=== PATIENT | male | born 1955 | race Caucasian/White ===

== ENCOUNTER → 2022-10-29 | Outpatient (CLI) | payer MEDICARE | END | disposition home or self-care (01) | LOC: LAB SHORT 10:03 → PLD 10:03 | DX: L57.0 Actinic keratosis (principal); L28.0 Lichen simplex chronicus | CPT/HCPCS: 88305 ==

== ENCOUNTER 2022-12-21 08:23 | Day surgery (SDC) | payer MEDICARE ==
[~2022-12-21] VITALS: Ht 172.7 cm; Wt 101.7 kg
[~2022-12-21 08:23] MED LIST: ACET500 PO; FOLI1 PO; KRILL OIL500 MG PO; LISI20 PO; METO25 PO; MULVITA PO; NEURIVA PO; OSTEO BIFLEX PO; PANT40 PO; POTASSIUM PO; PROSTATE PLUS PO; PSYLLIUM FIBER0.4 GM PO; Saw Palmetto160 MG PO; TIZANIDINE HCL2 MG PO; VITAMIN D310 MC4 PO; ZOCOR20 MG PO; [UNRECOGNIZED DRUG - OTHER] PO
--- NOTE | 2022-12-21 09:53 | NUR ---
History, Chart, Medications and Allergies reviewed before start of procedure. Lungs clear T/O to Auscultation. Patient confirms NPO status and agrees with scheduled surgery. Pre-Op teaching done. Pt verbalizes understanding. Patient reports completing Chlorhexadine shower X2 prior to admission to hospital.
--- NOTE | 2022-12-21 17:23 | NUR ---
SHIFT SUMMARY PT A&OX4, VSS/RA, PAULINE PO REG DIET, VOIDING, AMB SBA FWW & GB, PAIN MANAGED PER EMAR. S/P L TKA, AQUACEL CDI, PT ED'D. WILL REPORT TO ONCOMING NOC RN.
[2022-12-22 06:01] LABS: BASOPHILS ABSOLUTE AUTO 0.01 K/mm3 (0.00-0.23); BASOPHILS PERCENT AUTO 0 % (0-2); EOSINOPHILS ABSOLUTE AUTO 0.03 K/mm3 (0.00-0.68); EOSINOPHILS PERCENT AUTO 0 % (0-6); Hematocrit 36.3 % (37.0-53.0); Hemoglobin 11.8 g/dL (13.5-17.5); IMMATURE GRAN ABSOLUTE AUTO 0.03 K/mm3 (0.00-0.10); IMMATURE GRAN PERCENT AUTO 0 % (0-1); LYMPHOCYTES ABSOLUTE AUTO 0.96 K/mm3 (0.84-5.20); LYMPHOCYTES PERCENT AUTO 13 % (21-46); MONOCYTES ABSOLUTE AUTO 0.75 K/mm3 (0.16-1.47); MONOCYTES PERCENT AUTO 10 % (4-13); Mean Corpuscular HGB 30.3 pg (26.0-34.0); Mean Corpuscular HGB Conc 32.5 g/dL (31.5-36.5); Mean Corpuscular Volume 93 fL (80-100); NEUTROPHILS PERCENT AUTO 76 % (41-73); Platelet Count 153 K/mm3 (150-400); RDW Coefficient Variation 12.5 % (11.7-14.2); RDW Standard Deviation 42.3 fL (35.1-46.3); White Blood Cell Count 7.48 K/mm3 (4.00-11.30)
[2022-12-22 06:27] LABS: Bun/Creatinine Ratio 22.8 (12.0-20.0); Calcium, Blood 8.6 mg/dL (8.5-10.1); Creatinine, Blood 0.97 mg/dL (0.60-1.20); Magnesium, Blood 2.2 mg/dL (1.6-2.4); Potassium, Blood 4.2 mmol/L (3.5-5.5)
--- NOTE | 2022-12-22 07:23 | NUR ---
SHIFT SUMMARY POD1 L TKA WITH DR. BUI WITH AQUACEL DRESSING, REMAINED CDI. PT REPORTS MINIMAL PAIN T/O SHIFT. PAIN MANAGED WITH EUSEBIO, TYLENOL AND TORADOL. PT ALSO HAS POLAR PACK, DEREJE HOSE AND SCD IN PLACED. TOLERATING PO INTAKE. DENIES N/V. VSS. DENIES CP AND SOB. PT ALSO DENIES DIZZINESS. AMBULATES IN THE HALLWAY LAST NIGHT. UP TO THE BATHROOM OVERNIGHT. 1PA WITH FWW AND GB. AOX4. CALL LIGHT WITHIN REACH. REPORT GIVEN TO NESSA PAZ.
[2022-12-22] MEDS ORDERED: ASPI81CH PO (10:21)
[2022-12-22] MEDS ORDERED: OXYC5 PO (10:21)
--- NOTE | 2022-12-22 12:20 | NUR ---
DISCHARGE PT PROVIDED WITH WRITTEN AND VERBAL DISCHARGE INSTRUCTIONS; HE AND HIS SPOUSE REPORTED UNDERSTANDING. PT PROVIDED WITH CLEAN DRESSINGS. PT CLEARED THERAPY, PAIN MANAGED, PT TOLERATING PO, AND PAIN MANAGED PRIOR TO DISCHARGE. VSS PRIOR TO DISCHARGE. PT ASSISTED OUT IN W/C BY CARLIE GANDARA.
== END 2022-12-22 12:15 | disposition home or self-care (01) ==
LOC: ORSCMMR 08:23 → ORD 10:30 → SURS 12:36 → ORSCMMR 12-22 12:15
PROVIDERS: Orthopaedic Surgery
PROC: 8E0Y0CZ Robotic Assisted Procedure of Lower Extremity, Open Approach (ICD-10-PCS; principal; 2022-12-21 10:30)
PROC: 0SRD0JA Replacement of Left Knee Joint with Synthetic Substitute, Uncemented, Open Approach (ICD-10-PCS; principal; 2022-12-21 10:30)
DX: M17.12 Unilateral primary osteoarthritis, left knee (principal); I10 Essential (primary) hypertension; E66.9 Obesity, unspecified; Z68.34 Body mass index [BMI] 34.0-34.9, adult; Z79.899 Other long term (current) drug therapy
CPT/HCPCS: 27447; 0055T; S2900; 36415; 73560-LT; 80048; 83735; 85025; 97110; 97116; 97162; A9270; C1776; J0171; J0690; J0735; J1100; J1885; J2250; J2370; J2405; J2704; J2795; J3010; J7120

== ENCOUNTER 2025-07-04 11:57 | Day surgery (SDC) | payer MEDICARE ==
[~2025-07-04] VITALS: Ht 172.7 cm; Wt 85.9 kg
[~2025-07-04 11:57] MED LIST changes: +ASPI81CH PO; +OXYC5 PO; +Tranexamic Acid 100 ML IV ONE
[2025-07-04] MEDS ORDERED: ZEPBOUND2.5 MG/0.5 (12:21)
[2025-07-04] MEDS ORDERED: Ondansetron HCl 2 MG / ML 2ML Vial ONE (12:36)
[2025-07-04] MEDS ORDERED: Dexamethasone Sod Phos 10 MG/ML 1ML VIAL ONE (12:36)
[2025-07-04] MEDS ORDERED: EPINEPhrine HCl 1 MG / ML 30ML Vial ONE (12:55)
[2025-07-04] MEDS ORDERED: Lidocaine 1%-Epineph 1:200000 30 ML SDV ONE (12:55)
[2025-07-04] MEDS ORDERED: FentaNYL Citrate 50 MCG/ML 2 ML Injection ONE (13:11)
[2025-07-04] MEDS ORDERED: Sugammadex Sodium 200 MG/2ML SDV (100 MG/ML) ONE (14:33)
[2025-07-04 15:09] VITALS: BP 108/74
== END 2025-07-04 15:55 | disposition home or self-care (01) ==
LOC: ORSCSDS 11:57
PROVIDERS: Otolaryngology
PROC: 09SL0ZZ Reposition Nasal Turbinate, Open Approach (ICD-10-PCS; principal; 2025-07-04 13:15)
PROC: 09BM0ZZ Excision of Nasal Septum, Open Approach (ICD-10-PCS; principal; 2025-07-04 13:15)
DX: J34.3 Hypertrophy of nasal turbinates (principal); J34.2 Deviated nasal septum; I10 Essential (primary) hypertension; E78.5 Hyperlipidemia, unspecified; K21.9 Gastro-esophageal reflux disease without esophagitis; Z79.899 Other long term (current) drug therapy
CPT/HCPCS: J0165; J1100; J2405; J2704; J3010; J7120

== ENCOUNTER 2025-08-16 13:17 | Day surgery (SDC) | payer MEDICARE ==
[~2025-08-16] VITALS: Ht 172.7 cm; Wt 80.6 kg
[~2025-08-16 13:17] MED LIST changes: +Balanced Salt Epinephrine Irrigation Solution 500 mL IR SCH; +Moxifloxacin HCL 0.5 MG/0.1 ML 0.4MLSYR RIGHTEYE SCH; +Ondansetron 4 MG SoluTab MM PRN; +PHENYLEPHRINE\\TROPICAMIDE\\TETRACAINE OPHTHALMIC DILATING SOLN RIGHTEYE PRN; +Povidone-Iodine 450 DROP/30 ML Solution ONE; +Povidone-Iodine 450 DROP/30 ML Solution RIGHTEYE SCH; +Tetracaine HCl/Pf 0.5% Opth Soln 4 ml ONE; -Tranexamic Acid 100 ML IV ONE; +Triamcinolone Inj Susp 40 MG / ML 1ML Vial INJ SCH; +Triamcinolone Inj Susp 40 MG / ML 1ML Vial ONE; +ZEPBOUND2.5 MG/0.5
[2025-08-16] MEDS ORDERED: NS 1,000 ML IV ONE (13:58)
[2025-08-16] MEDS ORDERED: Midazolam HCl 1MG / ML 2ML Vial ONE (14:01)
[2025-08-16] MEDS ORDERED: Tetracaine HCl 0.5% Opth Soln 15 ml RIGHTEYE ONE (14:15)
[2025-08-16 14:35] VITALS: BP 107/65
== END 2025-08-16 14:50 | disposition home or self-care (01) ==
LOC: ORSCSDS 13:17
PROVIDERS: Ophthalmology
PROC: 08RJ3JZ Replacement of Right Lens with Synthetic Substitute, Percutaneous Approach (ICD-10-PCS; principal; 2025-08-16 14:30)
DX: H25.811 Combined forms of age-related cataract, right eye (principal); H52.201 Unspecified astigmatism, right eye; I10 Essential (primary) hypertension; Z79.899 Other long term (current) drug therapy; K21.9 Gastro-esophageal reflux disease without esophagitis
CPT/HCPCS: J2250; J3301; V2632

== ENCOUNTER 2025-08-23 13:07 | Day surgery (SDC) | payer MEDICARE ==
[~2025-08-23] VITALS: Ht 172.7 cm; Wt 79.6 kg
[~2025-08-23 13:07] MED LIST changes: +Moxifloxacin HCL 0.5 MG/0.1 ML 0.4MLSYR LEFTEYE SCH; -Moxifloxacin HCL 0.5 MG/0.1 ML 0.4MLSYR RIGHTEYE SCH; +NS 500 ML IV ONE; -Ondansetron 4 MG SoluTab MM PRN; +PHENYLEPHRINE\\TROPICAMIDE\\TETRACAINE OPHTHALMIC DILATING SOLN LEFTEYE PRN; -PHENYLEPHRINE\\TROPICAMIDE\\TETRACAINE OPHTHALMIC DILATING SOLN RIGHTEYE PRN; +Povidone-Iodine 450 DROP/30 ML Solution LEFTEYE SCH; -Povidone-Iodine 450 DROP/30 ML Solution RIGHTEYE SCH
[2025-08-23] MEDS ORDERED: Midazolam HCl 1MG / ML 2ML Vial ONE (13:31)
[2025-08-23] MEDS ORDERED: Tetracaine HCl 0.5% Opth Soln 15 ml LEFTEYE ONE (13:46)
[2025-08-23 14:18] VITALS: BP 105/66
== END 2025-08-23 14:31 | disposition home or self-care (01) ==
LOC: ORSCSDS 13:07
PROVIDERS: Ophthalmology
PROC: 08RK3JZ Replacement of Left Lens with Synthetic Substitute, Percutaneous Approach (ICD-10-PCS; principal; 2025-08-23 14:30)
DX: H25.812 Combined forms of age-related cataract, left eye (principal); H52.202 Unspecified astigmatism, left eye; H52.4 Presbyopia; Z96.1 Presence of intraocular lens; Z87.891 Personal history of nicotine dependence; N40.0 Benign prostatic hyperplasia without lower urinary tract symptoms; K21.9 Gastro-esophageal reflux disease without esophagitis; E78.5 Hyperlipidemia, unspecified; I10 Essential (primary) hypertension; R73.03 Prediabetes; Z79.85 Long-term (current) use of injectable non-insulin antidiabetic drugs; Z79.899 Other long term (current) drug therapy
CPT/HCPCS: J2250; J3301; J7040; V2632